=== PATIENT | female | born 1985 | race Caucasian/White ===

== ENCOUNTER → 2017-08-14 10:00 | Outpatient (CLI) | payer MEDICAID, SELFPAY ==
--- NOTE | 2017-08-14 10:01 | MM_ITS ---
MM Dig screening mamm BI w/CAD CAD Screening ORDERING PHYSICIAN : Omar Medel MD PATIENT AGE: 31 years GENDER: Female COMPARISON: Baseline Study with no previous for comparison HISTORY. No new complaints...mirana. Family history. Sister with breast cancer age 35 premenopausal. TECHNIQUE: Standard CC and MLO images were obtained. R2 CAD reviewed. FINDINGS: Lower density breast for this age with minimal to moderate scattered fibroglandular elements throughout anterior breast bilaterally.. No no dominant mass nor suspicious calcifications CAD computer review highlights no areas of concern. No architectural distortion RIGHT BREAST:No significan appearing t findings Small 6 mm intramammary lymph node appearing structure at the deep axillary right breast. Can be followed in one year LEFT BREAST: Been no significant findings IMPRESSION: ......... Baseline mammogram, with no areas of significant concern Bilateral follow-up in one year recommended and would be encouraged to confirm baseline BI-RADS Category: 2 Benign Finding(s) RECOMMENDED FOLLOW-UP: 1YR - 1 YEAR FOLLOW-UP (A letter has been sent to the patient regarding results of the study.) .
== END ==
PROVIDERS: PCP Family Medicine; Visit Provider Nurse Practitioner Obstetrics & Gynecology
DX: Z12.31 Encounter for screening mammogram for malignant neoplasm of breast (principal)
CPT/HCPCS: 77067

== ENCOUNTER → 2017-09-25 16:22 | Outpatient (CLI) | payer MEDICAID, SELFPAY ==
[2017-09-25 16:35] LABS: Basophils # 0.1 K/mm3 (0-0.2); Basophils % 0.6 % (0.1-2.0); Eosinophils # 0.6 K/mm3 (0.0-0.4); Hematocrit 45.3 % (37.0-47.0); Hemoglobin 14.9 g/dL (12.2-16.2); Lymphocytes % 24.2 K/mm3 (10-50); Mean Corpuscular HGB Conc 32.8 g/dL (31.8-35.4); Mean Corpuscular Hemoglobin 30.1 pg (27.0-31.2); Mean Corpuscular Volume 91.7 fl (81-99); Mean Platelet Volume 9.5 fl (7.4-10.4); Monocytes # 0.4 K/mm3 (0.1-1.0); Monocytes % 4.5 % (1.7-9.3); Neutrophils # 5.2 K/mm3 (1.8-7.8); Neutrophils % 63.7 % (37.0-80.0); Platelet Count 212 K/mm3 (142-424); Red Blood Count 4.95 M/mm3 (4.20-5.40); White Blood Count 8.2 K/mm3 (4.8-10.8)
[2017-09-25 17:52] LABS: HCG Qualitative, Serum Negative (Negative)
[2017-09-25 17:54] LABS: Anion Gap 10.8 mEq/L (5-15); Blood Urea Nitrogen 10 mg/dL (7-18); Calcium 9.2 mg/dL (8.5-10.1); Carbon Dioxide 30 mmol/L (21.0-32.0); Chloride 106 mmol/L (98-107); Creatinine,Serum 0.87 mg/dL (0.55-1.02); Estimated Glomerular Filt Rate 75 ml/min (>60); GFR (African American) 91 ML/MIN (>60); Glucose 99 mg/dL (74-106); Potassium 3.8 mmoL/L (3.5-5.1); Sodium 143 mmol/L (136-145)
== END ==
PROVIDERS: Visit Provider Nurse Practitioner Obstetrics & Gynecology
DX: Z01.818 Encounter for other preprocedural examination (principal)
CPT/HCPCS: 36415; 80048; 84703; 85025